=== PATIENT | male | born 1980 ===

== ENCOUNTER 2021-12-01 09:18 | Emergency (ER) | payer OTHER ==
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
[2021-12-01 11:34] VITALS: BP 126/90
== END 2021-12-01 11:30 | disposition home or self-care (01) ==
LOC: ED 09:18
DX: S13.4XXA Sprain of ligaments of cervical spine, initial encounter (principal); R51.9 Headache, unspecified; V89.2XXA Person injured in unspecified motor-vehicle accident, traffic, initial encounter; Y93.89 Activity, other specified; Y92.488 Other paved roadways as the place of occurrence of the external cause; Y99.8 Other external cause status
CPT/HCPCS: 70450; 72125; 99283